=== PATIENT | female | born 1965 | race Caucasian/White ===

== ENCOUNTER 2023-10-20 01:32 | Emergency (ER) | payer OTHER, SELFPAY ==
--- NOTE | 2023-10-20 01:52 | ED.DENTAL ---
HPI - Dental/Oral General Chief complaint: Dental/Oral Stated complaint: dental pain Time Seen by Provider: 10/20/23 01:42 Source: patient Mode of arrival: ambulatory Limitations: no limitations History of Present Illness HPI Narrative: This is a 58-year-old female who presents to the ED with chief complaint of dental pain for the past couple of weeks. Reports she has been taking amoxicillin as prescribed by primary doctor for the past week. She reports that she was retracted 500 3 times a day but since the pain and gotten worse she started taking 1000 3 times a day. Reports that this is not helping her pain. She states that her dentist told her that she would have to wait until May to have the affected right lower teeth pulled. Denies fevers, chills, nausea, vomiting, trismus, drooling. Related Data Allergies Allergy/AdvReac Type Severity Reaction Status Date / Time No Known Allergies Allergy Verified 10/20/23 01:34 Review of Systems Review of Systems: All systems as dictated in HPI Exam Narrative: GENERAL: Well-appearing, well-nourished, and in no acute distress. HEAD: Normocephalic, atraumatic. EYES: PERRLA and EOMI. ENT: Several teeth missing. Significant dental decay to the right lower molars and premolar. No discrete abscess or fluid collection identified. Floor of the mouth intact Trismus. No drooling. Nares clear, no rhinorrhea or epistaxis. Mucous membranes moist. Oropharynx without tonsillar hypertrophy exudate or other lesions. NECK: Supple. No adenopathy or masses. CHEST: No respiratory distress. Clear to auscultation. No wheezes rales or rhonchi HEART: Regular rate and rhythm. No murmur heard. Normal peripheral pulses. ABDOMEN: Soft, nontender, nondistended, normal active bowel sounds. MSK: Normal range of motion. No edema. SKIN: Warm, dry, no rash. NEURO: Alert and oriented x3. No focal deficits. PSYCH: Normal mood and affect. Course Vital Signs Vital signs: Vital Signs Pulse Rate 73 10/20/23 02:01 Respiratory Rate 15 10/20/23 02:01 Blood Pressure 147/89 H 10/20/23 02:01 Pulse Oximetry 100 10/20/23 02:01 Pulse Rate 73 10/20/23 02:01 Respiratory Rate 15 10/20/23 02:01 Blood Pressure 147/89 H 10/20/23 02:01 Pulse Oximetry 100 10/20/23 02:01 Procedures Nerve Block Nerve Block 1: Nerve block date: 10/20/23 Nerve block time: 02:50 Time out performed: Yes Local Anesthetic: bupivacaine 0.25% Amount of anesthesia used (mL): 1 Side: right Intraoral Nerve Block: inferior alveolar Procedure Successful: Yes Patient Tolerated Procedure: well and no complications Complications: none MDM - Dental/Oral MDM Narrative Medical decision making narrative: This is a 58-year-old female who presents to the ED with chief complaint of right-sided dental pain for the past several weeks. Vitals are normal. Exam is remarkable for dental caries and decay. No abscess. No evidence of deep space infection. Patient was given inferior alveolar nerve block with good affect. IM Toradol given as well. She was given dental resources. Pt will be discharged in stable condition. Return precautions given and supportive measures discussed. Pt is understanding and agreeable with plan for discharge and follow-up with PCP. Discharge Plan Discharge Clinical Impression: Dental caries Patient Disposition: Home, Self-Care Condition: Stable Instructions: Antibiotic Form Additional Instructions: Please follow-up closely with dentist for management of your dental pain. Take Tylenol and ibuprofen every 4-6 hours as needed for pain control If you have any new or worsening symptoms please return to the ER for further evaluation. Follow-up/Referrals: Rocco,Paul Duarte MD [Primary Care Provider] - Stand Alone Forms: Work/School Release IP Time of Disposition: 02:51
[2023-10-20] MEDS: KETOROLAC 30 MG/ML VIAL (*BKC) IM (01:59)
[2023-10-20 02:01] VITALS: BP 147/89; PULSE 73; RESP 15; O2SAT 100
== END 2023-10-20 03:04 | disposition home or self-care (01) ==
PROVIDERS: Emergency Provider Physician Assistant; PCP Internal Medicine
DX: K02.9 Dental caries, unspecified (principal)
CPT/HCPCS: 64400; 96372; 99283; J1885